=== PATIENT | male | born 1940 | race Caucasian/White ===

== ENCOUNTER → 2016-11-15 10:26 | Outpatient (CLI) | payer MEDICARE, OTHER ==
[2015-11-16 09:18] VITALS: BMI 30.8
[~2016-11-15 10:26] MED LIST: ACETAZOLAMIDE250 MG PO; ADVAIR HFA [SP]12 GM INH; ALBUTEROL INH; APRESOLINE50 MG PO; ARTIFICIAL TEAR15 ML EACH EYE; ASPIRIN325 MG PO; ATROVENT 0.02%2.5 ML UPD; AUGMENTIN 875-11 TAB PO; BETAPACE 120 M120 MG PO; BETAPACE 80 MG80 MG PO; BUMEX2 MG PO; BYSTOLIC10 MG PO; CHERATUSSIN AC473 ML PO; CORDARONE200 MG PO; CYCLOBENZAPRINE10 MG PO; DULCOLAX10 MG/SUPP RC; FISH OIL 1,0001 CA1; FISH OIL 1,0001 CA1 PO; FLEXERIL10 MG; FLORASTOR250 MG PO; HYDRALAZINE HCL25 MG PO; HYDRALAZINE HCL50 MG PO; HYDROCODON-ACE1 EAC7 PO; HYDROCODONE-APA1 TAB PO; IPRAT-ALBUT 0.5-3 ML UPD; LASIX20 MG PO; LASIX40 MG PO; LEVAQUIN500 MG PO; LEVAQUIN750 MG PO; LISINOPRIL10 MG PO; MAGNESIUM OXID500 MG PO; MEDROL DOSE PACK4 MG PO; MIRALAX17 GM PO; MUCINEX DM ER1 EAC1 PO; MULTI-DAY VITAM1 TAB PO; PEPCID20 MG PO; PERSANTINE50 MG PO; PLAVIX75 MG PO; POTASSIUM99 M1 PO; PROTONIX I40 MG/VIAL IV; PROTONIX40 MG PO; PROVENTIL HFA6.7 GM INH; REQUIP XL2 MG PO; RESTASIS EYE DR30 EA EACH EYE; SALINE FLUSH10 ML IV; SENOKOT-S TABLE1 TAB PO; SINGULAIR10 MG PO; SYMBICORT 16010.2 GM INH; TESSALON PERLE100 MG PO; TRILIPIX135 MG PO; UROXATRAL10 MG PO; VITAMIN B-1250 MCG; VITAMIN D2000 UNIT; VITAMIN D31000 UNIT PO; XARELTO15 MG PO
[2016-11-15 11:26] LABS: HEMATOCRIT 43.5 % (42.0-54.0); HEMOGLOBIN 14.3 g/dL (13.5-17.5); LYMPHOCYTES 26.9 % (15-50); MCHC 32.9 g/dL (31.0-37.0); MCV 97.3 fL (80.0-100.0); MEAN PLATELET VOLUME 9.5 fL (7.4-10.4); NEUTROPHILS 65.8 % (40-80); RBC 4.47 10x6/uL (4.20-6.10); RDW 12.6 % (11.5-14.5); WBC 6.6 10x3/uL (4.8-10.8)
[2016-11-15 11:28] LABS: PLATELET COUNT 231 10x3/uL (130-400)
[2016-11-15 11:46] LABS: ALBUMIN 3.2 g/dL (3.4-5.0); ANION GAP 6.1 mmol/L (8-16); BILIRUBIN - TOTAL 0.4 mg/dL (0.2-1.3); CALCIUM 9.4 mg/dL (8.5-10.1); CARBON DIOXIDE 36.5 mmol/L (21.0-32.0); CHOL - HDL RATIO 11.6 ratio (2.3-4.9); CREATININE - SERUM 1.2 mg/dL (0.6-1.3); POTASSIUM - SERUM 4.6 mmol/L (3.5-5.1); PROTEIN - SERUM 7.5 g/dL (6.4-8.2); SCREENING PSA (YEARLY) 1.33 ng/mL (0.00-4.00)
== END | disposition home or self-care (01) ==
LOC: D.LAB 10:15
PROVIDERS: Family Medicine
DX: Z00.00 Encounter for general adult medical examination without abnormal findings (principal); J44.9 Chronic obstructive pulmonary disease, unspecified; I10 Essential (primary) hypertension; E78.5 Hyperlipidemia, unspecified; I25.10 Atherosclerotic heart disease of native coronary artery without angina pectoris; N40.0 Benign prostatic hyperplasia without lower urinary tract symptoms

== ENCOUNTER 2016-11-25 23:53 | Inpatient (IN) | payer MEDICARE, OTHER ==
[~2016-11-25] VITALS: Ht 165.1 cm; Wt 81.6 kg
--- NOTE | ~2016-11-25 | HEMODYNAMI ---
PATIENT:JOSE L DURHAM MEDICAL RECORD: [id number] : 40 [id number] ADMISSION DATE: 11/26/16 Generatedon:11/28/201614:02 Patient name: JOSE L DURHAM Patient #: [id number] SSN: : Date of study: 11/28/2016 Page: Of Hemodynamic Procedure Report Patient Data Patient Demographics Procedure consent was obtained First Name: JOSE L Gender: Male Last Name: MARVA : 1940 Middle Initial: W Age: 76 year(s) Patient #: [id number] Race: Additional ID: [id number] Contact details [address]: [address] [place] [address] State: [place] [facility] [place]: [address] Past Medical History History of disease Date Diagnosis Comments CAD Allergies Allergen Reaction Date Comments Reported Other allergy 11/18/2015 Crestor Other allergy 11/28/2016 Crestor Admission Admission Data Admission Date: 11/26/2016 Admission Time: 3:54 Room #: D.2136 Height (in.): 71 BSA: 0.76 (m2) Height (cm.): 180.34 BMI: 2.51 (kg/m2) Weight (lbs.): 18 Weight (kg.): 8.16 Lab Results Lab Result Date: 11/28/2016 Lab Result Time: 0:00 Biochemistry Name Units Result Min Max BUN mg/dl 22 --(----)-* 7 18 Creatinine mg/dl 1.1 --(--*-)-- 0.6 1.3 CBC Name Units Result Min Max Hemoglobin g/dl 13.3 -*(----)-- 13.5 17.5 Procedure Procedure Types Cath Procedure Diagnostic Procedure [facility] w/Coronaries Miscellaneous Procedures Moderate Sedation up to 15 minutes Procedure Description Procedure Date Procedure Date: 11/28/2016 Procedure Start Time: 13:49 Procedure End Time: 13:59 Procedure Staff Name Function Mauro Hathaway MD Performing Physician Ben Ochoa RN Nurse Gretchen Kiran RT Scrub Kamar Morrison RT Monitor Jose Cruz Nolen RT Monitor Procedure Data Cath Procedure Fluoroscopy Diagnostic fluoroscopy Total fluoroscopy Time: 1.9 time: 1.9 min min Diagnostic fluoroscopy Total fluoroscopy dose: dose: 242.05 mGy 242.05 mGy Contrast Material Contrast Material Type Amount (ml) Isovue 300 76 Entry Location Entry Primary Successful Side Size Upsize Upsize Entry Closure Succes sful Closure Location (Fr) 1 (Fr) 2 (Fr) Remarks Device Remarks Femoral Right 5 Fr Exoseal artery Estimated blood loss: 5 ml Diagnostic catheters Device Type Used For End Catheter Placement Medtronic Dexterity 5Fr Procedure JL 4.0 catheter (NO CHARGE) Medtronic Dexterity 5Fr Procedure 3DRC catheter (NO CHARGE) Medtronic Dexterity 5Fr Procedure Pigtail catheter (NO CHARGE) Procedure Complications No complications Procedure Medications Medication Administration Route Dosage Oxygen NC 2 l/min Heparin Flush Bag added to field 2 bags (1000units/500ml NS) 0.9% NaCl I.V. 100 ml/hr Fentanyl I.V. 50 mcg Versed I.V. 1 mg Fentanyl I.V. 50 mcg Versed I.V. 1 mg Fentanyl I.V. 50 mcg Fentanyl I.V. 50 mcg Hemodynamics Rest BSA: 0.76 (m2) HGB: 13.3 (g/dl) O2 Consumption: Estimated: 91.85 (ml/min) O2 Con sumption indexed: Estimated:120.86 (ml/min/m) Heart Rate: 86 (bpm) Pressure Samples Time Site Value (mmHg) Purpose Heart Use Rate(bpm) 13:56 LV 144/7,16 Snapshot 83 13:57 AO 150/56(91) Pullback 81 13:57 LV 145/8,16 Pullback 81 Gradients Valve Time Site 1 Site 2 Mean SEP/DFP Peak To Heart Use (mmHg) (sec/min) Peak Rate (mmHg) (bpm) Aortic 13:57 LV AO 0 9 0 81 145/8,16 150/56(91) Calculations Valve P-P Mean Valve Index Valve Source Name Gradient Area Flow (cm2) Aortic 0 0 0 0 Snapshots Pre Cath Intra NCS Post Cath Vital Signs Time Heart Resp SPO2 NIBP (mmHg) Rhythm Pain Sedation Rate (ipm) (%) Status Level (bpm) 13:32:19 100 18 96 174/85(136) NSR 0 (11) 10(A) , No pain 13:36:37 81 17 96 148/76(111) NSR 0 (11) 10(A) , No pain 13:40:57 81 18 95 138/68(107) NSR 0 (11) 10(A) , No pain 13:45:20 80 17 95 140/68(100) NSR 0 (11) 10(A) , No pain 13:49:40 78 17 91 136/71(107) NSR 0 (11) 9(A) , No pain 13:53:58 75 17 91 139/72(105) NSR 0 (11) 9(A) , No pain 13:58:18 82 18 92 136/71(106) NSR 0 (11) 9(A) , No pain 14:01:37 83 16 92 134/73(98) NSR 0 (11) 9(A) , No pain Medications Time Medication Route Dose Verified Delivered Reason Notes Effec tiveness by by 13:28:45 Oxygen NC 2 Ben Ben Per l/min Don Ochoa RN physician RN 13:28:56 Heparin Flush added 2 Ben Ben used for Bag to bags Don Ochoa RN procedure (1000units/500ml field RN NS) 13:29:10 0.9% NaCl I.V. 100 Ben Ben Per ml/hr Don Ochoa RN physician RN 13:48:14 Fentanyl I.V. 50 Ben Ben for heber Ochoa RN sedation RN 13:48:21 Versed I.V. 1 mg Ben Ben for Don Ochoa RN sedation RN 13:50:21 Fentanyl I.V. 50 Ben Ben for heber Ochoa RN sedation RN 13:50:27 Versed I.V. 1 mg Ben Ben for Don Ochoa RN sedation RN 13:52:47 Fentanyl I.V. 50 Ben Ben for heber Ochoa RN sedation RN 13:56:38 Fentanyl I.V. 50 Ben Ben for heber Ochoa RN sedation trawl net maker Log Time Note 13:06:20 Ben Ochoa RN sent for patient. Start room use. 13:15:21 Time tracking: Regular hours 13:15:25 Plan of Care:Hemodynamics will remain stable., Cardiac rhythm will remain stable., Comfort level will be maintained., Respiratory function will remain adequate., Patient/ family verbilizes understanding of procedure., Procedure tolerated without complication., Recovers from procedure without complications.. 13:24:06 Patient received from PCU to CCL 3 Alert and oriented. Tansferred to table in Supine position. 13:24:07 Warm blankets applied, and arnaldo hugger turned on for patient comfort. 13:24:07 Correct patient and procedure confirmed by team. 13:24:09 Signed procedure consent form obtained from patient. 13:24:10 ECG and BP/O2 sat monitors applied to patient. 13:24:10 Full Disclosure recording started 13:28:45 Oxygen 2 l/min NC was administered by Ben Ochoa RN; Per physician; 13:28:56 Heparin Flush Bag (1000units/500ml NS) 2 bags added to field was administered by Ben Ochoa RN; used for procedure; 13:29:10 0.9% NaCl 100 ml/hr I.V. was administered by Ben Ochoa RN; Per physician; 13:30:56 Vital chart was started 13:33:26 Baseline sample Acquired. 13:33:31 Rhythm: sinus rhythm 13:34:10 Diagnostic Cath Status : Elective 13:36:02 H&P Date Dictated: 11/26/2016 Within 30 days and on chart.. 13:36:04 Pre-procedure instructions explained to patient. 13:36:05 Pre-op teaching completed and patient verbalized understanding. 13:36:22 Family in waiting room. 13:36:24 Patient NPO since Breakfast. 13:36:46 Patient allergic to Other allergy Crestor 13:36:49 Is the patient allergic to Iodine/contrast media? No. 13:36:55 Is patient on blood thinner?No 13:36:59 Patient diabetic? No. 13:37:01 ----Pre-sedation anethsthesia assessment.---- 13:37:03 Previous problem with sedation/anesthesia? No ? 13:37:05 Snore? Yes 13:37:06 Sleep apnea? Yes 13:37:08 Deviated septum? No 13:37:09 Opens mouth fully? Yes 13:37:10 Sticks out tongue? Yes 13:37:16 Airway obstruction? Yes COPD 13:37:19 Dentures? No ? 13:37:24 Pre procedure: right dorsailis pedis pulse 2+ Normal; easily identifiable; not easily obliterated 13:37:29 Patient pain scale 0/10 ?. 13:37:36 IV patent on arrival in left forearm with 0.9% NaCl at [facility]. 13:38:13 Lab Result : BUN 22 mg/dl 13:38:13 Lab Result : Creatinine 1.1 mg/dl 13:38:13 Lab Result : Hemoglobin 13.3 g/dl 13:38:17 Lab results completed and on chart. 13:38:23 Right groin area was prepped with chlora-prep and draped in sterile fashion 13:38:54 NO PREP OF RADIAL, LAST CASE WAS A 7 JAPANESE SYSTEM 13:38:57 Alarms reviewed by R. N. 13:38:58 Sharps counted by scrub and verified by R.N. 13:39:19 Patient Height : 180.34 cm 13:39:40 Patient Weight : 8.16 kg 13:39:52 Use device set Femoral Dx 13:39:54 Acist Syringe opened to sterile field. 13:39:54 Bag Decanter opened to sterile field. 13:39:55 Medline Cath Pack opened to sterile field. 13:39:56 Terumo 5Fr Madison Sheath opened to sterile field. 13:39:56 St Jorge Alberto 260cm J .035 wire opened to sterile field. 13:39:58 Acist Hand Control opened to sterile field. 13:39:59 Acist Manifold opened to sterile field. 13:40:02 Tegaderm 4 x 4 opened to sterile field. 13:46:31 Zero performed for pressure channel P1 13:46:38 Physician arrived 13:46:38 --------ALL STOP TIME OUT------ 13:46:39 Final Timeout: patient, procedure, and site verified with staff and physician. All members of the team are in agreement. 13:46:41 Right groin site verified by team. 13:46:45 Physical assessment completed. ASA score P 2 - A patient with mild systemic disease as per Mauro Hathaway MD. 13:46:50 Sedation plan: IV Moderate Sedation Versed, Fentanyl 13:47:51 Zero performed for pressure channel P1 13:48:14 Fentanyl 50 mcg I.V. was administered by Ben Ochoa RN; for sedation; 13:48:21 Versed 1 mg I.V. was administered by Ben Ochoa RN; for sedation; 13:49:32 Procedure started. 13:49:35 Local anesthetic to right femoral artery with Lidocaine 2% by Mauro Hathaway MD.INITIAL ACCESS ONLY 13:49:46 A 5 Fr sheath was inserted into the Right Femoral artery 13:50:21 Fentanyl 50 mcg I.V. was administered by Ben Ochoa RN; for sedation; 13:50:27 Versed 1 mg I.V. was administered by Ben Ochoa RN; for sedation; 13:51:22 A Medtronic Dexterity 5Fr JL 4.0 catheter (NO CHARGE) was advanced over the wire and used for Procedure. 13:52:47 Fentanyl 50 mcg I.V. was administered by Ben Ochoa RN; for sedation; 13:53:03 LCA angiography performed. 13:53:06 Catheter exchanged over wire. 13:53:11 A Medtronic Dexterity 5Fr 3DRC catheter (NO CHARGE) was advanced over the wire and used for Procedure. 13:54:38 RCA angiography performed. 13:55:05 Catheter exchanged over wire. 13:55:11 A Medtronic Dexterity 5Fr Pigtail catheter (NO CHARGE) was advanced over the wire and used for Procedure. 13:55:16 Cordis 5Fr Exoseal opened to sterile field. 13:56:26 LV gram done using FRANCO 13:56:31 Injector settings: Ml/sec: 10, Volume: 20, 13:56:38 Fentanyl 50 mcg I.V. was administered by Ben Ochoa RN; for sedation; 13:56:54 EF : 60 % 13:57:16 LV hemodynamics recorded. 13:57:22 Catheter removed. 13:57:36 Sheath removed intact; hemostasis achieved with Exoseal to the Right Femoral artery. 13:57:39 Procedure ended.(Physican Out) 13:57:50 Fluoroscopy time 01.90 minutes. 13:58:00 Fluoroscopy dose: 242.05 mGy 13:58:00 Flurop Dose total: 242.05 13:58:04 Contrast amount:Isovue 300 76ml. 13:58:05 Sharps counted by scrub and verified by R.N. 13:58:07 Insertion/operative site no bleeding no hematoma. 13:58:09 Post-op/insertion site Right Femoral artery dressed using a 4 x 4 and Tegaderm. 13:58:13 Post right femoral artery:stable, soft, clean and dry 13:58:14 Post Procedure Pulses reassessed and unchanged 13:58:16 Post-procedure physical assessment completed. ASA score P 2 - A patient with mild systemic disease as per Mauro Hathaway MD. 13:58:18 Post procedure rhythm: unchanged. 13:58:21 Estimated blood loss: 5 ml 13:58:22 Post procedure instruction explained to patient.Patient verbalizes understanding. 13:58:22 Patient needs reinforcement of post procedure teaching. 13:58:30 Procedure type changed to Cath procedure, Diagnostic procedure, LHC, LHC w/Coronaries, Miscellaneous Procedures, Moderate Sedation up to 15 minutes 13:58:52 Procedure and supply charges have been captured, reviewed, submitted and are correct. 13:58:54 Procedure Complication : No complications 13:59:01 Vital chart was stopped 13:59:01 See physician's report for complete and final results. 13:59:02 Report given to Pre/Post Procedure Room. 13:59:05 Patient transfered to Pre/Post Procedure Room with Stretcher. 13:59:06 Procedure ended. 13:59:06 Full Disclosure recording stopped 13:59:13 End room use (Document Last) Device Usage Item Name Manufacture Quantity Catalog Hospital Part Current Minimal Lo t# / Number Charge Number Stock Stock Serial# Code Acist Acist 1 [id number] 434963 [id number] 20 Syringe Medical Systems Inc Bag Microtek 1 2001S [id number] 48277 683501 5 DecClick4Ride Inc. Medline Cardinal 1 [id number] 588215 38265 889380 5 SNAPin Software TerMapp 1 [id number] 034799 848817 718760 [address] Jorge Alberto 1 [id number] 526485 686344 825521 30 260cm J .035 wire Acist Acist 1 57335 909596 646088 610831 5 Hand Taking Point Control Systems Inc Acist Acist 1 66812 268942 963729 460457 5 Manifold Medical Systems Inc Tegaderm 1 [id number] 828515 493816 310812 5 4 x 4 Medtronic Medtronic 1 [id number] 758559 249224 5 Dexterity 5Fr JL 4.0 catheter (NO CHARGE) Medtronic Medtronic 1 [id number] 888655 622528 5 Dexterity 5Fr 3DRC catheter (NO CHARGE) Medtronic Medtronic 1 [id number] 700140 433933 5 Dexterity 5Fr Pigtail catheter (NO CHARGE) Cordis Cardinal 1 [id number] 208309 538514 070886 10 5Fr Health Exoseal Signature Audit [place] Stage Time Signature Unsigned Intra-Procedure 11/28/2016 Jose Cruz Nolen 2:02:20 PM RT(R) Signatures Monitor : Kamar Morrison RT Signature : Date : Time : Monitor : Jose Cruz Nolen RT Signature : Date : Time : [place] [address] [place] [address]
[~2016-11-25 23:53] MED LIST changes: -PROVENTIL HFA6.7 GM INH
[2016-11-26 01:05] LABS: CKMB 2.2 U/L (0.0-3.6); CREATINE KINASE 75 UL (21-232); PRO BNP 531 pg/mL (0-450); TROPONIN-I 0.039 ng/mL (0.000-0.060)
[2016-11-26 02:01] LABS: BASOPHILS 0.4 % (0-2); EOSINOPHILS 5.2 % (0-7); HEMATOCRIT 54.5 % (42.0-54.0); HEMOGLOBIN 17.9 g/dL (13.5-17.5); IMMATURE GRANULOCYTES 0.2 % (0-5); LYMPHOCYTES 22.6 % (15-50); MCH 32.3 pg (26.0-34.0); MCHC 32.8 g/dL (31.0-37.0); MCV 98.2 fL (80.0-100.0); MEAN PLATELET VOLUME 11.2 fL (7.4-10.4); MONOCYTES 4.9 % (2-11); NEUTROPHILS 66.7 % (40-80); RBC 5.55 10x6/uL (4.20-6.10); RDW 12.7 % (11.5-14.5); WBC 5.4 10x3/uL (4.8-10.8)
[2016-11-26 02:09] LABS: PLATELET COUNT 152 10x3/uL (130-400)
[2016-11-26 02:11] LABS: ALBUMIN 3.4 g/dL (3.4-5.0); ANION GAP 9.5 mmol/L (8-16); BILIRUBIN - TOTAL 0.4 mg/dL (0.2-1.3); CALCIUM 8.7 mg/dL (8.5-10.1); CARBON DIOXIDE 35.3 mmol/L (21.0-32.0); CREATININE - SERUM 1.3 mg/dL (0.6-1.3); POTASSIUM - SERUM 3.8 mmol/L (3.5-5.1); PROTEIN - SERUM 6.9 g/dL (6.4-8.2)
--- NOTE | 2016-11-26 07:10 | NUR ---
REC'D PT FROM ER VIA BED. PT A/O X3. WEARING BI-PAP AT 40%. SPOUSE AT BEDSIDE. 18G IV TO RT AC, IS SL. ABRASION TO LEFT FOREHEAD D/T FALL. PT AND SPOUSE ORIENTED TO ROOM. CALL LIGHT WITH IN REACH. PT ASKING ABOUT FOOD. INFORMED PT AND SPOUSE THAT WE ARE AWAITING ORDERS FROM DR. VAUGHAN. PT APPEARS COMFORTABLE. NO DISTRESS NOTED. WHEN ASKED IF PT WAS FEELING BETTER SHE SHOOK HIS HEAD YES.
[2016-11-26] MEDS ORDERED: FISH OIL 1,0001 CA1 PO (07:22)
[2016-11-26 08:28] LABS: TROPONIN-I 0.14 ng/mL (0.000-0.060)
[2016-11-26 09:44] VITALS: BP 113/56
--- NOTE | 2016-11-26 10:04 | NUR ---
0656- PT TO FLOOR VIA STRETCHER ACCOMPANIED BY ER STAFF. RECEIVED REPORT FROM CARIE (COMMODITY SPECIALIST NURSE). PT IS ALERT AND ORIENTED. ON BI-PAP. IV SEEN TO RIGHT AC THAT IS CURRENTLY SALINE LOCKED. IS AT BEDSIDE. CARIE (COMMODITY SPECIALIST NURSE) IS DOING QUICKSTART AND ADMISSION HISTORY, WILL DO ADMISSION ASSESSMENT AND CONTINUE TO MONITOR.
--- NOTE | 2016-11-26 10:08 | NUR ---
ADMISSION ASSESSMENT DONE. PT IS LAYING IN BED ON BACK WITH EYES CLOSED RESTING. BI-PAP IS ON AND IS AT BEDSIDE. NO NEED AT CURRENT TIME. WILL CONTINUE TO MONITOR.
[2016-11-26 10:48] VITALS: BP 113/56
[2016-11-26 12:03] VITALS: BP 103/84
--- NOTE | 2016-11-26 12:14 | NUR ---
UPON WALKING INTO PTS ROOM, NOTICED PT IS OFF HIS BI-PAP AND HIS NC IS NOT ON. PT IS SITTING UP IN SIDE OF THE BED EATING LUNCH. I CHECKED PTS 02 SAT WHICH WAS 74%. I ASKED PT IF HE FELT OKAY AND HE REPLIED " YES". I TURNED PTS O2 VIA NC UP TO 4L AND RECHECKED PTS O2 SAT WHICH IS 90% NOW. INSTRUCTED PT LEAVE 02 ON. WILL CONTINUE TO MONITOR.
--- NOTE | 2016-11-26 13:04 | NUR ---
INFORMED MERISSA IN TELEMETRY THAT PT HAS ORDERS TO BE PUT ON HEART MONITOR. MERISSA STATED THAT THEY ARE ONLY PUTTING PTS ON THE MONITOR IF THEY HAVE CHEST PAIN, ELEVATED TROPONIN, CHF, AND ANGINA. WILL CONTINUE TO MONITOR.
[2016-11-26 16:51] VITALS: BP 147/75
[2016-11-26 20:00] VITALS: BP 157/98
--- NOTE | 2016-11-26 21:05 | NUR ---
NO HS MEDS TO GIVEN AT THIS TIME, PT DENIES NEEDS. POSTING CLERK AT BED SIDE TO OBTAIN VITALS.
--- NOTE | 2016-11-26 21:50 | NUR ---
NOTIFIED DIE CAST ENGINEER Scot SCHNEIDER OF NEW MEDICATION ORDERS THAT WERE PLACED BY DR CROWELL.
--- NOTE | 2016-11-26 22:03 | NUR ---
PAGE OUT TO DR LANCASTER FOR CONSULT PLACED BY DR CROWELL.
--- NOTE | 2016-11-26 22:09 | NUR ---
PLACED ON TELETMETRY, 78, SR. WILL CONT TO MONITOR.
--- NOTE | 2016-11-26 23:50 | NUR ---
HS MEDS GIVEN WITH FRESH ICE WATER, INFORMED H.S. THAT I HAD SENT OUT A PAGE FOR DR LANCASTER BUT DIDNT RECIEVE A RETURN CALL.
[2016-11-27] VITALS (7 sets, daily range): BP systolic 124–164; BP diastolic 57–78
--- NOTE | 2016-11-27 02:38 | NUR ---
RESTING WITH EYES CLOSED, RESPERATIONS EVEN, NO S/S DISTRESS NOTED.
[2016-11-27 06:05] LABS: BASOPHILS 0 % (0-2); EOSINOPHILS 0 % (0-7); IMMATURE GRANULOCYTES 0.2 % (0-5); LYMPHOCYTES 7.2 % (15-50); MCHC 32.8 g/dL (31.0-37.0); MCV 97.8 fL (80.0-100.0); MEAN PLATELET VOLUME 10.6 fL (7.4-10.4); MONOCYTES 1.6 % (2-11); RDW 12.5 % (11.5-14.5)
[2016-11-27 06:14] LABS: HEMATOCRIT 40.6 % (42.0-54.0); HEMOGLOBIN 13.3 g/dL (13.5-17.5); RBC 4.15 10x6/uL (4.20-6.10); WBC 16.6 10x3/uL (4.8-10.8)
[2016-11-27 06:15] LABS: PLATELET COUNT 205 10x3/uL (130-400)
[2016-11-27 06:41] LABS: ANION GAP 9.3 mmol/L (8-16); CALCIUM 9.1 mg/dL (8.5-10.1); CREATININE - SERUM 1.1 mg/dL (0.6-1.3); MAGNESIUM - SERUM 1.7 mg/dL (1.8-2.4); POTASSIUM - SERUM 4.3 mmol/L (3.5-5.1)
[2016-11-27 06:43] LABS: TROPONIN-I 0.158 ng/mL (0.000-0.060)
--- NOTE | 2016-11-27 06:52 | NUR ---
RECEIVED REPORT FROM OTOLARYNGOLOGY SURGEON NURSE, RUSSELL TAMAYO. PT IN BED USING BIPAP AT THIS TIME. PT DENIE ANY NEEDS AT THIS TIME. CALL LIGHT IN REACH, NAD NOTED, WILL CONTINUE TO MONITOR.
--- NOTE | 2016-11-27 09:28 | NUR ---
ADMINISTERED MORNING MEDICATIONS. PT IN BED, FAMILY AT BEDSIDE. PT DENIES ANY NEEDS AT THIS TIME. CALL LIGHT IN REACH, NAD NOTED, WILL CONTINUE TO MONITOR.
--- NOTE | 2016-11-27 19:00 | NUR ---
INITIAL ROUNDS MADE. PT SITTING UP IN BED WITH FAMILY IN ROOM. PT ON BIPAP AT THIS TIME. NO NEEDS OR C/O VOICED AT THIS TIME. WILL CONT TO MONITOR.
--- NOTE | 2016-11-27 22:55 | NUR ---
RESTING WELL WITH EYES CLOSED, RT IN ROOM. BIPAP ON
[2016-11-28 03:23] VITALS: BP 151/75
--- NOTE | 2016-11-28 07:20 | NUR ---
PT SITTING UP IN BED FAMILY MEMBER AT BEDSIDE DENIES NEEDS WILL CONT TO MONITOR
[2016-11-28 08:33] VITALS: BP 163/73
--- NOTE | 2016-11-28 10:52 | NUR ---
PT SAYING THAT HE IS TO GO FOR HEART CATH TODAY. NO ORDERS. DR HEADLEY'S NOTE FROM YESTERDAY SAYS HE IS TO HAVE HEART CATH TODAY. CALLED CARDIAC TRAINING PERSONNEL SUPERVISOR SPOKE WITH JORGE, HE SAYS PT IS ON SCHEDULE FOR LATER THIS AFTERNOON. OBTAINED CONSENTS FOR CARDIAC CATH AND BLOOD AND PLACED ON PT CHART.
[2016-11-28 12:00] VITALS: BP 164/64
--- NOTE | 2016-11-28 12:09 | NUR ---
Patient Name: JOSE L DURHAM Admission Status: ER Accout number: [id number] Admission Date: 11-26-2016 : 1940 Admission Diagnosis: Attending: NEYDA Current LOS: 2 Anticipated DC Date: 11-29-2016 Planned Disposition: Home Primary Insurance: MEDICARE A & B Discharge Planning Comments: * Is the patient Alert and Oriented? Yes 0 * How many steps to enter\exit or inside your home? NONE 0 * PCP DR. BISWAS 0 * Pharmacy [facility] [employer] [facility] [email or web address] 0 * Preadmission Environment Home with Family 0 * ADLs Independent 0 * Equipment CPAP Nebulizer Oxygen 0 * Other Equipment HOME AND PORTABLE OXYGEN [facility] - MEDICAL EQUIPMENT PROVIDER 0 * List name and contact numbers for known caregivers / representatives who currently or will assist patient after discharge: REYES DURHAM, SPOUSE, 0 * Community resources currently utilized None 0 * Please name any agencies selected above. NONE 0 * Additional services required to return to the preadmission environment? No 0 * Can the patient safely return to the preadmission environment? Yes 0 * Has this patient been hospitalized within the prior 30 days at any hospital? No 0 CM RECEIVED ORDER FOR HOSPITAL BED AND NIPPV ARRANGEMENT. CM MET WITH PT AND SPOUSE IN ROOM TO DISCUSS DISCHARGE PLANNING AND NEEDS. PT REPORTS LIVING AT HOME INDEPENDENTLY WITH SPOUSE. PT HAS CPAP, NEBULILZER, HOME AND PORTABLE OXYGEN FROM [facility]. PT HAS NO OUTSIDE SERVICES ASSISTING IN THE HOME. CM DISCUSSED AVAILABILITY OF HOME HEALTH, REHAB SERVICES AND MEDICAL EQUIPMENT. PT DENIES DISCHARGE NEEDS OTHER THAN THE ORDERS THE DOCTORS HAVE PUT IN, PT THINKS HE MAY GO HOME TOMORROW IF ARRANGEMENTS ARE COMPLETED. PT WOULD LIKE TO USE [facility] FOR MEDICAL EQUIPMENT. PT REPORTS HIS SPOUSE WILL PICK HIM UP FOR DISCHARGE HOME. IMPORTANT MESSAGE FROM MEDICARE PROVIDED AND EXPLAINED. CM CALLED [facility], , SPOKE TO KIN, NOTIFIED OF ORDER, FAXED ORDER TO [facility] AT [phone]. CM WAITING ARRANGEMENT OF HOSPITAL BED FOR HOME USE WELL NIPPV BY [facility]. CM TO CONTINUE TO FOLLOW AND ASSIST NEEDED. Proof Inspector: Daryl Reese
--- NOTE | 2016-11-28 13:00 | NUR ---
PT PREOPED FOR HEART CATH
--- NOTE | 2016-11-28 14:15 | NUR ---
PT BACK FROM EDUCATIONAL PSYCHOLOGY PROFESSOR AWAKE ALERT AND ORIENTED. VS ARE WNL. R GROIN INCISION SITE IS WNL. FAMILY AT BEDSIDE. FLAT FOR 2 HOURS
[2016-11-28 14:50] LABS: BASOPHILS 0 % (0-2); EOSINOPHILS 0 % (0-7); HEMOGLOBIN 13.4 g/dL (13.5-17.5); IMMATURE GRANULOCYTES 0.3 % (0-5); LYMPHOCYTES 5.7 % (15-50); MCH 32.1 pg (26.0-34.0); MCHC 32.7 g/dL (31.0-37.0); MCV 98.1 fL (80.0-100.0); MEAN PLATELET VOLUME 10.7 fL (7.4-10.4); MONOCYTES 3.8 % (2-11); NEUTROPHILS 90.2 % (40-80); PLATELET COUNT 200 10x3/uL (130-400); RBC 4.18 10x6/uL (4.20-6.10); RDW 12.8 % (11.5-14.5); WBC 14.6 10x3/uL (4.8-10.8)
--- NOTE | 2016-11-28 14:52 | NUR ---
PT R GROIN SITE STILL WNL, PT VS ARE STILL WNL FAMILY AT BEDSIDE. PT STILL LAYING FLAT AND IS EATING A SANDWICH.
--- NOTE | 2016-11-28 15:14 | NUR ---
PT STILL LAYING FLAT R GROIN SITE STILL WNL, VS ARE WNL
[2016-11-28 15:15] LABS: ANION GAP 6.5 mmol/L (8-16); CALCIUM 8.7 mg/dL (8.5-10.1); CARBON DIOXIDE 37.5 mmol/L (21.0-32.0); CREATININE - SERUM 1.2 mg/dL (0.6-1.3)
[2016-11-28 15:23] VITALS: Ht 165.1 cm; Wt 81.6 kg
[2016-11-28 16:00] VITALS: BP 140/64
[2016-11-28] MEDS ORDERED: PROVENTIL HFA6.7 GM INH (16:02)
--- NOTE | 2016-11-28 17:13 | NUR ---
PT BIPAP CAN NOT BE DELIVERED FROM [facility] UNTIL TOMORROW. PT SAYS OK WITH HIM TO JUST USE HOME CPAP MACHINE. PAGED DR CONTEH TO MAKE SURE
[2016-11-28] MEDS ORDERED: LEVAQUIN750 MG PO (17:28)
--- NOTE | 2016-11-28 17:44 | NUR ---
DR CONTEH IS OK WITH PT USING CPAP TOMORROW AND USING BIPAP AFTER DELIVERED. PT WANTS TO GO HOME, DR CONTEH SAID "WHATEVER HE WANTS". WORKING ON DC PAPERWORK NOW. DR CONTEH WANTS PT TO GO HOME ON LEVAQUIN 750 MG DAILY FOR 10 DAYS. CALLED INTO [facility] SPOKE WITH SWAPNA
--- NOTE | 2016-11-28 18:12 | NUR ---
PT WAS WHEELED DOWNSTAIRS BY ME PERSONALLY, DROVE HIM HOME
--- NOTE | 2016-11-29 08:51 | NUR ---
Patient Name: JOSE L DURHAM Encounter No: [id number] : 1940 Primary Insurance: MEDICARE A & B Anticipated DC Date: 11-28-2016 Planned Disposition: Home DCP follow-up note: MICAELA CALLED [facility], , NOTIFIED LUIS OF PT'S DISCHARGE AND REQUESTED THAT ALL MEDICAL EQUIPMENT DELIVERY (NIPPV AND HOSPITAL BED) BE ARRANGED WITH PT AT HOME. LUIS REPORTS ORDERS ARE BEING PROCESSED AND [facility] WILL FOLLOW UP WITH PT AT HOME. Daryl Reese, CASE MANAGEMENT
--- NOTE | 2016-12-01 10:59 | EC ---
PATIENT:JOSE L DURHAM DATE OF SERVICE: 11/26/16 SEX: M MEDICAL RECORD: [id number] DATE OF : [birth year] LOCATION:D.M2 D.213 AGE OF PATIENT: 76 ADMISSION DATE: 11/26/16 REFERRING PHYSICIAN: INTERPRETING PHYSICIAN: JOSE HATHAWAY M.D. ECHOCARDIOGRAM REPORT ECHO CHARGES 4 ECHO COMPLETE CLINICAL DIAGNOSIS: SOB HX CAD/MULTIPLE STENTS ECHOCARDIOGRAPHIC MEASUREMENTS (adult normal given) AC root (d.<3.7cm) 3.3 LV Septum d (<1.2 cm> 1.7 Valve Excursion 1.8 LV Septum (systole) 1.8 Left Atria (s.<4.0cm> 4.7 LVPW d(<1.2cm) 1.8 RV (d.<2.3cm) 4.9 LVPW (sytole) 2.0 LV diastole(<5.6CM) 5.6 MV E-F(>70mm/sec) LV systole 3.6 LVOT Diameter 1.9 MV exc.(>10mm) 1.3 Est.ejection fraction (50-75%) Pericardial Effusion N DOPPLER: LVIT A 117 E 121 LA RVSP 41 LVOT 104 AOP1/2T Asc. Ao 158 RVOT RA PA AV Gradient Peak 9.95 AV Mean 4.6 AV Area 2.1 MV Gradient Peak 9.77 MV Mean 4.09 MV Area COMMENTS: Tube Draw Helper: Asia FORREST Field Appraiser:Asia Hathaway TAPE# PACS DATE OF SERVICE: 11/27/2016 REFERRING PHYSICIAN: Norris Monreal MD. INDICATION: Dyspnea. DESCRIPTION: Left ventricle demonstrates left ventricular hypertrophy. No wall motion abnormalities are noted. Estimation ejection fraction is 60%. Mitral valve is structurally normal. There is mild regurgitation seen. Left atrium is moderately dilated. The aortic valve is trileaflet. There is no stenosis or ECHOCARDIOGRAM REPORT [id number] JOSE L DURHAM regurgitation seen. Right ventricle is mildly dilated. Tricuspid valve is normal. There is mild regurgitation noted. Right ventricular systolic pressure is elevated at 41 mmHg. There is no pericardial effusion seen. IMPRESSION: 1. Left ventricular hypertrophy with preserved ejection fraction of 60%. 2. Mild mitral regurgitation. 3. Mild tricuspid regurgitation with elevated pulmonary pressures. TRANSINT:[id number] Voice Confirmation ID: [id number] DOCUMENT ID: [id number] JOSE HATHAWAY M.D. at 1059 CC: [id number] DICTATION DATE: 11/28/16645 COIN MACHINE SUPERVISOR: 11/28/1640 DIS IN 11/28/16 [place] [id number] [place] [id number]
--- NOTE | 2016-12-01 10:59 | OP ---
PATIENT NAME: JOSE L DURHAM MEDICAL RECORD: [id number] :40 LOCATION:D.M2 D.2136 ADMISSION DATE:11/26/16 SURGEON: JOSE HEADLEY M.D. DATE OF OPERATION: 11/28/2016 REFERRING PHYSICIAN: Norris Monreal MD. PROCEDURES PERFORMED: 1. Selective coronary angiography. 2. Left heart catheterization with ventriculogram. INDICATION: A 76-year-old gentleman presents with symptoms of dyspnea worsened for angina. Cardiac catheterization was performed to rule out restenosis. EQUIPMENT USED: A 5-Emirati JL4, Adolph right, pigtail catheter. TECHNIQUE: A 5-Emirati sheath was inserted in retrograde fashion in the right common femoral artery. Next, selective coronary angiography was performed in standard views using 5-Emirati JL4 and Adolph right. Left heart catheterization was performed using pigtail catheter. CORONARY ANATOMY: 1. Left main: Left main trunk is moderate in caliber. It gives rise to the LAD and circumflex. There is no obstruction. 2. LAD: This is a moderate-caliber vessel extending to the apex. The proximal mid vessel has been stented. The stents are widely patent. There is no evidence of restenosis. 3. Circumflex: This vessel is small in caliber. It has mild irregularities throughout its course, but nothing worse than 20%. 4. Right coronary: This vessel is large in caliber and dominant. The proximal and distal vessels have been stented. The stent is widely patent. In the distal vessel, proximal to the stent, there appears to be at 30%-40% stenosis. 5. Left ventricle: Left ventricle is normal in size. No wall motion abnormalities are noted. Estimated ejection fraction is 60%. There does appear to be moderate mitral regurgitation noted. IMPRESSION: 1. Widely patent stents in the right coronary artery and left anterior descending without evidence of restenosis. 2. Normal left ventricular function with moderate mitral regurgitation. RECOMMENDATIONS: I will check an echocardiogram to assess the mitral regurgitation to see if this accounts for his dyspnea. TRANSINT:[id number] Voice Confirmation ID: [id number] DOCUMENT ID: [id number] JOSE HEADLEY M.D. at 1059 CC: [id number] DICTATION DATE: 11/28/16 1406 TRANSVERSE ABDOMINAL MUSCLE NURSE: 11/28/16 1434 DIS IN 11/28/16 [facility] [address] [place] [address]
== END 2016-11-28 18:12 | disposition home or self-care (01) | DRG 286 ==
LOC: D.ER 23:53 → D.M2 11-26 03:54
PROVIDERS: Emergency Medicine; Internal Medicine Cardiovascular Disease; ADMIT Family Medicine
PROC: 5A09457 Assistance with Respiratory Ventilation, 24-96 Consecutive Hours, Continuous Positive Airway Pressure (ICD-10-PCS; 2016-11-27)
PROC: B2151ZZ Fluoroscopy of Left Heart using Low Osmolar Contrast (ICD-10-PCS; 2016-11-28)
PROC: 4A023N7 Measurement of Cardiac Sampling and Pressure, Left Heart, Percutaneous Approach (ICD-10-PCS; 2016-11-28)
PROC: B2111ZZ Fluoroscopy of Multiple Coronary Arteries using Low Osmolar Contrast (ICD-10-PCS; principal; 2016-11-28 14:00)
DX: I25.10 Atherosclerotic heart disease of native coronary artery without angina pectoris (principal); J96.22 Acute and chronic respiratory failure with hypercapnia; J96.21 Acute and chronic respiratory failure with hypoxia; J44.0 Chronic obstructive pulmonary disease with (acute) lower respiratory infection; J44.1 Chronic obstructive pulmonary disease with (acute) exacerbation; J98.11 Atelectasis; I50.20 Unspecified systolic (congestive) heart failure; N28.1 Cyst of kidney, acquired; I08.1 Rheumatic disorders of both mitral and tricuspid valves; E78.5 Hyperlipidemia, unspecified; J20.9 Acute bronchitis, unspecified; I11.0 Hypertensive heart disease with heart failure; G47.33 Obstructive sleep apnea (adult) (pediatric); K21.9 Gastro-esophageal reflux disease without esophagitis; N40.0 Benign prostatic hyperplasia without lower urinary tract symptoms; Z95.5 Presence of coronary angioplasty implant and graft; Z86.73 Personal history of transient ischemic attack (TIA), and cerebral infarction without residual deficits

== ENCOUNTER → 2017-10-09 15:26 | Outpatient (CLI) | payer MEDICARE, OTHER ==
[2016-11-28 15:23] VITALS: BMI 29.9
[~2017-10-09 15:26] MED LIST changes: +ASCORBIC ACID500 MG PO; +BROVANA15 MCG/2 M INH; +CENTRUM SILVER1 TA1 PO; +COZAAR25 MG PO; +FLORAJEN3 CAPS460 MG PO; +FLUTICASONE PRO16 GM NASAL; +GLIMEPIRIDE1 MG PO; +PROVENTIL HFA6.7 GM INH; +PULMICORT0.5 MG/21 UPD; +XOPENEX 0.0.63 MG/3 UPD
[2017-10-09 19:09] LABS: BASOPHILS 0.2 % (0-2); EOSINOPHILS 3.6 % (0-7); HEMATOCRIT 44.5 % (42.0-54.0); IMMATURE GRANULOCYTES 0.3 % (0-5); LYMPHOCYTES 21.9 % (15-50); MCH 32.1 pg (26.0-34.0); MCHC 31.5 g/dL (31.0-37.0); MCV 102.1 fL (80.0-100.0); MEAN PLATELET VOLUME 10.9 fL (7.4-10.4); MONOCYTES 3.9 % (2-11); NEUTROPHILS 70.1 % (40-80); PLATELET COUNT 193 10x3/uL (130-400); RBC 4.36 10x6/uL (4.20-6.10); RDW 13.9 % (11.5-14.5); WBC 6.5 10x3/uL (4.8-10.8)
== END | disposition home or self-care (01) ==
LOC: D.LABREF 15:26
PROVIDERS: Internal Medicine Pulmonary Disease
DX: R06.00 Dyspnea, unspecified (principal)

== ENCOUNTER → 2017-10-09 19:12 | Outpatient (CLI) | payer MEDICARE, OTHER ==
[2016-11-28 15:23] VITALS: BMI 29.9
== END | disposition home or self-care (01) ==
LOC: D.LABREF 19:12
DX: R06.00 Dyspnea, unspecified (principal)

== ENCOUNTER 2017-10-21 17:24 | Emergency (ER) | payer MEDICARE, OTHER ==
[2016-11-28 15:23] VITALS: BMI 29.9
[~2017-10-21 17:24] MED LIST changes: -ASCORBIC ACID500 MG PO; -BROVANA15 MCG/2 M INH; -CENTRUM SILVER1 TA1 PO; -COZAAR25 MG PO; -FLORAJEN3 CAPS460 MG PO; -FLUTICASONE PRO16 GM NASAL; -GLIMEPIRIDE1 MG PO; -PULMICORT0.5 MG/21 UPD; -XOPENEX 0.0.63 MG/3 UPD
[2017-10-21 18:21] LABS: BASOPHILS 0.3 % (0-2); EOSINOPHILS 0.6 % (0-7); HEMATOCRIT 46.7 % (42.0-54.0); HEMOGLOBIN 14.7 g/dL (13.5-17.5); IMMATURE GRANULOCYTES 0.4 % (0-5); LYMPHOCYTES 21.7 % (15-50); MCH 32.2 pg (26.0-34.0); MCHC 31.5 g/dL (31.0-37.0); MCV 102.4 fL (80.0-100.0); MEAN PLATELET VOLUME 10.9 fL (7.4-10.4); MONOCYTES 8.6 % (2-11); NEUTROPHILS 68.4 % (40-80); PLATELET COUNT 173 10x3/uL (130-400); RBC 4.56 10x6/uL (4.20-6.10); RDW 14.9 % (11.5-14.5); WBC 6.8 10x3/uL (4.8-10.8)
[2017-10-21 18:34] LABS: ALBUMIN 3.1 g/dL (3.4-5.0); ANION GAP 9.8 mmol/L (8-16); BILIRUBIN - TOTAL 0.6 mg/dL (0.2-1.3); CALCIUM 9.1 mg/dL (8.5-10.1); CARBON DIOXIDE 35.3 mmol/L (21.0-32.0); CREATININE - SERUM 1.8 mg/dL (0.6-1.3); POTASSIUM - SERUM 4.1 mmol/L (3.5-5.1); PROTEIN - SERUM 6.7 g/dL (6.4-8.2)
[2017-10-21 19:38] LABS: APPEARANCE CLEAR (CLEAR); COLOR YELLOW (YELLOW)
[2017-10-21 19:39] LABS: BILIRUBIN NEGATIVE (NEGATIVE); GLUCOSE NEGATIVE (NEGATIVE); KETONE NEGATIVE (NEGATIVE); NITRITE NEGATIVE (NEGATIVE); PROTEIN TRACE mg/dL (NEGATIVE); UROBILINOGEN NORMAL (NORMAL)
[2017-10-21 20:24] LABS: TROPONIN-I 0.019 ng/mL (0.000-0.060)
== END 2017-10-21 22:35 | disposition home or self-care (01) ==
LOC: D.ER 17:24
PROVIDERS: Family Medicine; Physician Assistant
DX: I48.91 Unspecified atrial fibrillation (principal); R06.02 Shortness of breath; R60.0 Localized edema; Z86.79 Personal history of other diseases of the circulatory system; Z87.09 Personal history of other diseases of the respiratory system; I10 Essential (primary) hypertension; F17.200 Nicotine dependence, unspecified, uncomplicated

== ENCOUNTER 2017-11-06 00:30 | Inpatient (IN) | payer MEDICARE, OTHER ==
[2017-11-06] VITALS (24 sets, daily range): BP systolic 90–138; BP diastolic 57–99; BMI 31.6
[~2017-11-06] VITALS: Ht 162.6 cm; Wt 83.6 kg
--- NOTE | ~2017-11-06 | EC ---
PATIENT:JOSE L DURHAM DATE OF SERVICE: 11/06/17 SEX: M MEDICAL RECORD: [id number] DATE OF : 40 LOCATION:[facility] D230 AGE OF PATIENT: 77 ADMISSION DATE: 11/06/17 REFERRING PHYSICIAN: INTERPRETING PHYSICIAN: FRANK MARTNÍEZ MD ECHOCARDIOGRAM REPORT ECHO CHARGES 4 ECHO COMPLETE Date: 11/06 CLINICAL DIAGNOSIS: A-FIB ECHOCARDIOGRAPHIC MEASUREMENTS (adult normal given) AC root (d.<3.7cm) 3.0 cm LV Septum d (<1.2 cm> 1.7 cm Valve Excursion 1.9 cm LV Septum (systole) 2.3 cm Left Atria (s.<4.0cm> 5.1 cm LVPW d(<1.2cm) 1.7 cm RV (d.<2.3cm) 3.0 cm LVPW (sytole) 2.3 cm LV diastole(<5.6CM) 4.5 cm MV E-F(>70mm/sec) cm LV systole 2.2 cm LVOT Diameter 2.1 cm MV exc.(>10mm) cm Est.ejection fraction (50-75%) % DOPPLER: LVIT cm/sec A cm/sec E 196 cm/sec LA cm/sec RVSP 73.0 mmHg LVOT 73.0 cm/sec AOP1/2T m/s Asc. Ao 137 cm/sec RVOT 59.0 cm/sec RA cm/sec PA 74.0 cm/sec AV Gradient Peak 7.5 mmHg AV Mean 3.5 mmHg AV Area 2.3 cm MV Gradient Peak 16.1 mmHg MV Mean 4.8 mmHg MV Area cm COMMENTS: Gas Technician: 1 ODETTE CARLTONOE Core Finisher: 1 Dr. Martínez TAPE# PACS Pericardial Effusion N DATE OF SERVICE: FINDINGS: 1. Left ventricular chamber size is within normal limits. Left ventricular systolic function is normal. Overall ejection fraction estimated at 55%. 2. Left atrium is enlarged at 5.1 cm. Right atrium and right ventricular chamber sizes are as well moderately dilated. 3. Valvular structures have normal structure and motion. 4. Doppler interrogation reveals severe mitral regurgitation, moderate tricuspid regurgitation, no other valvular insufficiency or stenosis. Pulmonary ECHOCARDIOGRAM REPORT [id number] JOSE L DURHAM systolic pressure is significantly elevated, estimated 73 mmHg. 5. No evidence of pericardial effusion or left ventricular thrombus. TRANSINT:[id number] Voice Confirmation ID: [id number] DOCUMENT ID: [id number] FRANK MARTÍNEZ MD at 1056 CC: [id number] DICTATION DATE: 11/06/17 1618 SOLVENT MIXER: 11/06/17 2340 ADM IN [facility] [address] [place] [address]
--- NOTE | ~2017-11-06 | EC ---
PATIENT:JOSE L DURHAM DATE OF SERVICE: 11/06/17 SEX: M MEDICAL RECORD: [id number] DATE OF : 40 LOCATION:D.M2 D.212 AGE OF PATIENT: 77 ADMISSION DATE: 11/06/17 REFERRING PHYSICIAN: INTERPRETING PHYSICIAN: ANDREY JACQUES MD ECHOCARDIOGRAM REPORT ECHO CHARGES 4 ECHO COMPLETE Date: 11/08 CLINICAL DIAGNOSIS: A-FIB ECHOCARDIOGRAPHIC MEASUREMENTS (adult normal given) AC root (d.<3.7cm) 3.0 cm LV Septum d (<1.2 cm> 1.7 cm Valve Excursion 1.9 cm LV Septum (systole) 2.3 cm Left Atria (s.<4.0cm> 5.1 cm LVPW d(<1.2cm) 1.7 cm RV (d.<2.3cm) 3.0 cm LVPW (sytole) 2.3 cm LV diastole(<5.6CM) 4.5 cm MV E-F(>70mm/sec) cm LV systole 2.2 cm LVOT Diameter 2.1 cm MV exc.(>10mm) cm Est.ejection fraction (50-75%) % DOPPLER: LVIT cm/sec A cm/sec E 196 cm/sec LA cm/sec RVSP 73.0 mmHg LVOT 73.0 cm/sec AOP1/2T m/s Asc. Ao 137 cm/sec RVOT 59.0 cm/sec RA cm/sec PA 74.0 cm/sec AV Gradient Peak 7.5 mmHg AV Mean 3.5 mmHg AV Area 2.3 cm MV Gradient Peak 16.1 mmHg MV Mean 4.8 mmHg MV Area cm COMMENTS: Seed Cone Picker: Christopher CARLTONOE Instructional Support Services Director: 4 Dr. Jacques TAPE# PACS Pericardial Effusion N DATE OF SERVICE: PROCEDURE: Transesophageal echocardiogram. The patient was in the ICU, where we were able to intubate the esophagus with the transesophageal echo probe and look at the aorta as well as cardiac structures. FINDINGS: 1. The mitral valve is thickened. There is eccentrically posteriorly directed ECHOCARDIOGRAM REPORT [id number] JOSE L DURHAM mitral regurgitation. There does not appear to be any chordal structure disruption. The papillary muscle appears to be intact. There is a slight prolapse in the anterior mitral valve. There is also what appears to be a coaptation issue. 2. The left atrial appendage itself showed spontaneous echo contrast or rouleaux formation. The pulsed wave velocities were less than 0.5. There appeared to be layered thrombus in the left atrial appendage. This may be sessile, however, it is uncertain based upon current study. 3. There is pulmonary vein reversal. 4. Tricuspid valve shows severe tricuspid regurgitation. Estimated RVSP of 50-60 mmHg. CONCLUSION: In conclusion, the patient has severe eccentric posteriorly directed mitral regurgitation with proximal flow convergence. Subchordal structures appear to be intact with mild anterior valve prolapse and difficulty with what appears to be at the coaptation site with closure. TRANSINT:[id number] Voice Confirmation ID: [id number] DOCUMENT ID: [id number] ANDREY JACQUES MD at 0741 CC: [id number] DICTATION DATE: 11/09/17 0856 HIDE SPLITTER: 11/09/17 1056 DIS IN 11/17/17 [facility] [address] [place] [address]
[2017-11-06 00:53] LABS: BASOPHILS 0.1 % (0-2); EOSINOPHILS 0.2 % (0-7); HEMATOCRIT 49.1 % (42.0-54.0); HEMOGLOBIN 15.8 g/dL (13.5-17.5); IMMATURE GRANULOCYTES 0.2 % (0-5); LYMPHOCYTES 9.4 % (15-50); MCH 33.2 pg (26.0-34.0); MCHC 32.2 g/dL (31.0-37.0); MCV 103.2 fL (80.0-100.0); MEAN PLATELET VOLUME 11.3 fL (7.4-10.4); NEUTROPHILS 84.1 % (40-80); PLATELET COUNT 202 10x3/uL (130-400); RBC 4.76 10x6/uL (4.20-6.10); RDW 14.8 % (11.5-14.5); WBC 16.3 10x3/uL (4.8-10.8)
[2017-11-06 01:16] LABS: ALBUMIN 3.3 g/dL (3.4-5.0); ALKALINE PHOSPHATASE 28 U/L (46-116); ALT (SGPT) 19 U/L (10-68); CALC OSMOLALITY 301 mosm/kg (275-300); CALCIUM 9.5 mg/dL (8.5-10.1); CARBON DIOXIDE 32.7 mmol/L (21.0-32.0); CHLORIDE - SERUM 100 mmol/L (98-107); CREATININE - SERUM 2.1 mg/dL (0.6-1.3); GLUCOSE 215 mg/dL (74-106); POTASSIUM - SERUM 4.8 mmol/L (3.5-5.1); PROTEIN - SERUM 7.1 g/dL (6.4-8.2); SODIUM 143 mmol/L (136-145); UREA NITROGEN 42 mg/dL (7-18); eGFR NON AFRICAN AMERICAN 33 mL/min (90-120)
[2017-11-06 01:19] LABS: CKMB 1.6 U/L (0.0-3.6); CREATINE KINASE 56 UL (21-232); PRO BNP 3993 pg/mL (0-450)
[2017-11-06] MEDS ORDERED: CENTRUM SILVER1 TA1 PO (02:33)
[2017-11-06] MEDS ORDERED: ASCORBIC ACID500 MG PO (02:33)
[2017-11-06 14:16] LABS: APPEARANCE CLEAR (CLEAR); BILIRUBIN NEGATIVE (NEGATIVE); COLOR DK YELLOW (YELLOW); GLUCOSE NEGATIVE (NEGATIVE); KETONE NEGATIVE (NEGATIVE); NITRITE NEGATIVE (NEGATIVE); PROTEIN NEGATIVE (NEGATIVE); UROBILINOGEN NORMAL (NORMAL)
[2017-11-07] VITALS (24 sets, daily range): BP systolic 101–160; BP diastolic 66–99; Ht 162.6 cm; Wt 83.6 kg
[2017-11-07 10:38] LABS: BASOPHILS 0 % (0-2); EOSINOPHILS 0 % (0-7); HEMATOCRIT 43.2 % (42.0-54.0); HEMOGLOBIN 13.6 g/dL (13.5-17.5); IMMATURE GRANULOCYTES 0.3 % (0-5); LYMPHOCYTES 5.7 % (15-50); MCH 31.9 pg (26.0-34.0); MCHC 31.5 g/dL (31.0-37.0); MCV 101.4 fL (80.0-100.0); MEAN PLATELET VOLUME 11.3 fL (7.4-10.4); MONOCYTES 2.5 % (2-11); NEUTROPHILS 91.5 % (40-80); RBC 4.26 10x6/uL (4.20-6.10); RDW 14.4 % (11.5-14.5)
[2017-11-07 10:41] LABS: PLATELET COUNT 149 10x3/uL (130-400); WBC 8.6 10x3/uL (4.8-10.8)
[2017-11-07 10:44] LABS: ANION GAP 11.7 mmol/L (8-16); CALCIUM 8.9 mg/dL (8.5-10.1); CARBON DIOXIDE 35.8 mmol/L (21.0-32.0); CREATININE - SERUM 1.9 mg/dL (0.6-1.3); POTASSIUM - SERUM 4.5 mmol/L (3.5-5.1)
[2017-11-07 13:51] LABS: CKMB 1.6 U/L (0.0-3.6); CREATINE KINASE 35 UL (21-232)
[2017-11-07 14:04] LABS: TROPONIN-I 0.062 ng/mL (0.000-0.060)
[2017-11-07 20:03] LABS: CKMB 1.6 U/L (0.0-3.6); CREATINE KINASE 33 UL (21-232)
[2017-11-07 20:09] LABS: TROPONIN-I 0.066 ng/mL (0.000-0.060)
[2017-11-08] VITALS (24 sets, daily range): BP systolic 99–164; BP diastolic 55–110
[2017-11-08 04:56] LABS: BASOPHILS 0.1 % (0-2); EOSINOPHILS 0 % (0-7); HEMATOCRIT 41.4 % (42.0-54.0); HEMOGLOBIN 14.2 g/dL (13.5-17.5); IMMATURE GRANULOCYTES 0.2 % (0-5); LYMPHOCYTES 5.7 % (15-50); MCH 34.4 pg (26.0-34.0); MCHC 34.3 g/dL (31.0-37.0); MCV 100.2 fL (80.0-100.0); MEAN PLATELET VOLUME 12.5 fL (7.4-10.4); MONOCYTES 4.2 % (2-11); NEUTROPHILS 89.8 % (40-80); RBC 4.13 10x6/uL (4.20-6.10)
[2017-11-08 04:58] LABS: PLATELET COUNT 193 10x3/uL (130-400)
[2017-11-08 05:18] LABS: CALC OSMOLALITY 290 mosm/kg (275-300); CALCIUM 9.2 mg/dL (8.5-10.1); CARBON DIOXIDE 36.5 mmol/L (21.0-32.0); CHLORIDE - SERUM 96 mmol/L (98-107); CKMB 1.3 U/L (0.0-3.6); CREATINE KINASE 80 UL (21-232); CREATININE - SERUM 1.6 mg/dL (0.6-1.3); GLUCOSE 215 mg/dL (74-106); SODIUM 137 mmol/L (136-145); UREA NITROGEN 43 mg/dL (7-18); eGFR NON AFRICAN AMERICAN 45 mL/min (90-120)
[2017-11-08 05:21] LABS: POTASSIUM - SERUM 5.4 mmol/L (3.5-5.1); TROPONIN-I 0.064 ng/mL (0.000-0.060)
[2017-11-08 14:31] LABS: BASOPHILS 0 % (0-2); EOSINOPHILS 0 % (0-7); HEMATOCRIT 46.6 % (42.0-54.0); HEMOGLOBIN 14.8 g/dL (13.5-17.5); IMMATURE GRANULOCYTES 0.3 % (0-5); LYMPHOCYTES 5.8 % (15-50); MCH 32.8 pg (26.0-34.0); MCHC 31.8 g/dL (31.0-37.0); MEAN PLATELET VOLUME 11.4 fL (7.4-10.4); MONOCYTES 3.2 % (2-11); NEUTROPHILS 90.7 % (40-80); PLATELET COUNT 171 10x3/uL (130-400); RBC 4.51 10x6/uL (4.20-6.10); RDW 14.4 % (11.5-14.5)
[2017-11-08 15:07] LABS: MCV 103.3 fL (80.0-100.0); WBC 12.9 10x3/uL (4.8-10.8)
[2017-11-09] VITALS (24 sets, daily range): BP systolic 108–159; BP diastolic 59–119
[2017-11-09 04:32] LABS: BASOPHILS 0 % (0-2); EOSINOPHILS 0 % (0-7); HEMATOCRIT 45.5 % (42.0-54.0); HEMOGLOBIN 14.4 g/dL (13.5-17.5); IMMATURE GRANULOCYTES 0.1 % (0-5); LYMPHOCYTES 6.6 % (15-50); MCH 32.6 pg (26.0-34.0); MCHC 31.6 g/dL (31.0-37.0); MCV 102.9 fL (80.0-100.0); MEAN PLATELET VOLUME 11.5 fL (7.4-10.4); MONOCYTES 5.1 % (2-11); NEUTROPHILS 88.2 % (40-80); PLATELET COUNT 164 10x3/uL (130-400); RBC 4.42 10x6/uL (4.20-6.10); RDW 14.8 % (11.5-14.5)
[2017-11-09 04:54] LABS: ALBUMIN 2.9 g/dL (3.4-5.0); ANION GAP 12.2 mmol/L (8-16); BILIRUBIN - TOTAL 1.18 mg/dL (0.2-1.3); CARBON DIOXIDE 34.6 mmol/L (21.0-32.0); CREATININE - SERUM 1.7 mg/dL (0.6-1.3); MAGNESIUM - SERUM 1.7 mg/dL (1.8-2.4); PHOSPHOROUS 3.3 mg/dL (2.5-4.9); POTASSIUM - SERUM 4.8 mmol/L (3.5-5.1); PROTEIN - SERUM 6.5 g/dL (6.4-8.2)
[2017-11-10] VITALS (22 sets, daily range): BP systolic 113–166; BP diastolic 77–110
[2017-11-10 03:43] LABS: BASOPHILS 0 % (0-2); EOSINOPHILS 0 % (0-7); HEMATOCRIT 45.4 % (42.0-54.0); HEMOGLOBIN 14.1 g/dL (13.5-17.5); IMMATURE GRANULOCYTES 0.3 % (0-5); LYMPHOCYTES 5.8 % (15-50); MCH 31.8 pg (26.0-34.0); MCHC 31.1 g/dL (31.0-37.0); MCV 102.3 fL (80.0-100.0); MEAN PLATELET VOLUME 11.1 fL (7.4-10.4); MONOCYTES 4.6 % (2-11); NEUTROPHILS 89.3 % (40-80); PLATELET COUNT 158 10x3/uL (130-400); RBC 4.44 10x6/uL (4.20-6.10); RDW 14.5 % (11.5-14.5); WBC 7.8 10x3/uL (4.8-10.8)
[2017-11-10 04:30] LABS: ALBUMIN 2.9 g/dL (3.4-5.0); ANION GAP 5.9 mmol/L (8-16); BILIRUBIN - TOTAL 0.7 mg/dL (0.2-1.3); CALCIUM 8.9 mg/dL (8.5-10.1); CARBON DIOXIDE 39.3 mmol/L (21.0-32.0); CREATININE - SERUM 1.7 mg/dL (0.6-1.3); MAGNESIUM - SERUM 1.8 mg/dL (1.8-2.4); PHOSPHOROUS 2.8 mg/dL (2.5-4.9); POTASSIUM - SERUM 4.2 mmol/L (3.5-5.1); PROTEIN - SERUM 6.4 g/dL (6.4-8.2); TROPONIN-I 0.045 ng/mL (0.000-0.060)
[2017-11-11] VITALS (24 sets, daily range): BP systolic 97–156; BP diastolic 72–113
[2017-11-11 04:09] LABS: BASOPHILS 0 % (0-2); EOSINOPHILS 0 % (0-7); HEMATOCRIT 44.7 % (42.0-54.0); HEMOGLOBIN 14.1 g/dL (13.5-17.5); IMMATURE GRANULOCYTES 0.4 % (0-5); LYMPHOCYTES 7.4 % (15-50); MCH 32.1 pg (26.0-34.0); MCHC 31.5 g/dL (31.0-37.0); MCV 101.8 fL (80.0-100.0); MEAN PLATELET VOLUME 11.1 fL (7.4-10.4); MONOCYTES 4.7 % (2-11); NEUTROPHILS 87.5 % (40-80); PLATELET COUNT 140 10x3/uL (130-400); RBC 4.39 10x6/uL (4.20-6.10); RDW 14.2 % (11.5-14.5); WBC 7.3 10x3/uL (4.8-10.8)
[2017-11-11 04:27] LABS: ANION GAP 10.3 mmol/L (8-16); CREATININE - SERUM 1.4 mg/dL (0.6-1.3); POTASSIUM - SERUM 4.3 mmol/L (3.5-5.1)
[2017-11-12] VITALS (20 sets, daily range): BP systolic 118–154; BP diastolic 77–107
[2017-11-12 03:56] LABS: BASOPHILS 0.1 % (0-2); EOSINOPHILS 0 % (0-7); HEMOGLOBIN 14.3 g/dL (13.5-17.5); IMMATURE GRANULOCYTES 0.2 % (0-5); LYMPHOCYTES 5.1 % (15-50); MCH 32.4 pg (26.0-34.0); MCHC 31.8 g/dL (31.0-37.0); MCV 101.8 fL (80.0-100.0); MEAN PLATELET VOLUME 11.2 fL (7.4-10.4); MONOCYTES 3.9 % (2-11); NEUTROPHILS 90.7 % (40-80); PLATELET COUNT 158 10x3/uL (130-400); RBC 4.42 10x6/uL (4.20-6.10); RDW 14.1 % (11.5-14.5)
[2017-11-12 04:10] LABS: WBC 9.6 10x3/uL (4.8-10.8)
[2017-11-12 04:16] LABS: ANION GAP 7.5 mmol/L (8-16); CALCIUM 8.9 mg/dL (8.5-10.1); CARBON DIOXIDE 39.8 mmol/L (21.0-32.0); CHOL - HDL RATIO 9.8 ratio (2.3-4.9); CREATININE - SERUM 1.3 mg/dL (0.6-1.3); LDL-HDL RATIO 5.9 ratio (1.5-3.5); MAGNESIUM - SERUM 1.8 mg/dL (1.8-2.4); PHOSPHOROUS 2.9 mg/dL (2.5-4.9)
[2017-11-12 04:17] LABS: POTASSIUM - SERUM 5.3 mmol/L (3.5-5.1)
[2017-11-13] VITALS (18 sets, daily range): BP systolic 116–155; BP diastolic 54–105
[2017-11-13 03:52] LABS: BASOPHILS 0 % (0-2); EOSINOPHILS 0 % (0-7); HEMATOCRIT 45.9 % (42.0-54.0); HEMOGLOBIN 14.3 g/dL (13.5-17.5); IMMATURE GRANULOCYTES 0.4 % (0-5); LYMPHOCYTES 4.2 % (15-50); MCHC 31.2 g/dL (31.0-37.0); MCV 102.7 fL (80.0-100.0); MEAN PLATELET VOLUME 11.4 fL (7.4-10.4); MONOCYTES 3.3 % (2-11); NEUTROPHILS 92.1 % (40-80); PLATELET COUNT 159 10x3/uL (130-400); RBC 4.47 10x6/uL (4.20-6.10); RDW 14.3 % (11.5-14.5); WBC 11.1 10x3/uL (4.8-10.8)
[2017-11-13 04:06] LABS: CREATININE - SERUM 1.3 mg/dL (0.6-1.3); MAGNESIUM - SERUM 1.9 mg/dL (1.8-2.4); PHOSPHOROUS 3.2 mg/dL (2.5-4.9)
[2017-11-13 04:07] LABS: ANION GAP 6.2 mmol/L (8-16)
[2017-11-13 04:08] LABS: CARBON DIOXIDE 40.8 mmol/L (21.0-32.0)
[2017-11-14] VITALS: BP 143/93
[2017-11-14 04:00] VITALS: BP 140/89
[2017-11-14 05:20] LABS: BASOPHILS 0.1 % (0-2); EOSINOPHILS 0.1 % (0-7); HEMATOCRIT 45.1 % (42.0-54.0); IMMATURE GRANULOCYTES 0.5 % (0-5); LYMPHOCYTES 4.8 % (15-50); MEAN PLATELET VOLUME 11.3 fL (7.4-10.4); MONOCYTES 3.6 % (2-11); NEUTROPHILS 90.9 % (40-80); PLATELET COUNT 170 10x3/uL (130-400); RBC 4.38 10x6/uL (4.20-6.10); RDW 14.1 % (11.5-14.5); WBC 12.9 10x3/uL (4.8-10.8)
[2017-11-14 05:42] LABS: ALBUMIN 2.8 g/dL (3.4-5.0); ANION GAP 1.1 mmol/L (8-16); BILIRUBIN - TOTAL 1.1 mg/dL (0.2-1.3); CALCIUM 9.5 mg/dL (8.5-10.1); CREATININE - SERUM 1.4 mg/dL (0.6-1.3); POTASSIUM - SERUM 4.4 mmol/L (3.5-5.1)
[2017-11-14 06:29] LABS: CARBON DIOXIDE 44.3 mmol/L (21.0-32.0)
[2017-11-14 08:07] VITALS: BP 136/82
[2017-11-14 10:46] VITALS: BP 138/72
[2017-11-14 15:33] VITALS: BP 132/86
[2017-11-14 20:00] VITALS: BP 131/69
[2017-11-15] VITALS: BP 136/77
[2017-11-15 04:00] VITALS: BP 129/76
[2017-11-15 08:29] VITALS: BP 102/85
[2017-11-15 13:01] VITALS: BP 140/80
[2017-11-15 18:39] VITALS: BP 127/71
[2017-11-15 19:00] VITALS: BP 132/67
[2017-11-16 04:00] VITALS: BP 134/86
[2017-11-16 06:29] LABS: BASOPHILS 0 % (0-2); EOSINOPHILS 0 % (0-7); HEMATOCRIT 45.2 % (42.0-54.0); HEMOGLOBIN 14.1 g/dL (13.5-17.5); IMMATURE GRANULOCYTES 0.5 % (0-5); LYMPHOCYTES 4.4 % (15-50); MCH 31.8 pg (26.0-34.0); MCHC 31.2 g/dL (31.0-37.0); MCV 101.8 fL (80.0-100.0); MEAN PLATELET VOLUME 11.5 fL (7.4-10.4); MONOCYTES 2.7 % (2-11); NEUTROPHILS 92.4 % (40-80); PLATELET COUNT 165 10x3/uL (130-400); RBC 4.44 10x6/uL (4.20-6.10); WBC 15.1 10x3/uL (4.8-10.8)
[2017-11-16 06:46] LABS: MAGNESIUM - SERUM 1.7 mg/dL (1.8-2.4); PHOSPHOROUS 3.5 mg/dL (2.5-4.9)
[2017-11-16 11:52] VITALS: BP 128/69
[2017-11-16 15:40] VITALS: BP 135/72
[2017-11-16 20:00] VITALS: BP 126/70
[2017-11-17] VITALS: BP 106/69
[2017-11-17 05:50] VITALS: BP 126/79
[2017-11-17 06:56] LABS: ALBUMIN 2.8 g/dL (3.4-5.0); ANION GAP 7.2 mmol/L (8-16); BILIRUBIN - TOTAL 0.8 mg/dL (0.2-1.3); CARBON DIOXIDE 37.4 mmol/L (21.0-32.0); CREATININE - SERUM 1.2 mg/dL (0.6-1.3); POTASSIUM - SERUM 4.6 mmol/L (3.5-5.1); PROTEIN - SERUM 5.7 g/dL (6.4-8.2)
[2017-11-17 08:16] VITALS: BP 120/77
[2017-11-17] MEDS ORDERED: BROVANA15 MCG/2 M INH (10:26)
[2017-11-17] MEDS ORDERED: XOPENEX 0.0.63 MG/3 UPD (10:27)
[2017-11-17] MEDS ORDERED: ATROVENT 0.02%2.5 ML UPD (10:27)
[2017-11-17] MEDS ORDERED: COZAAR25 MG PO (10:29)
[2017-11-17] MEDS ORDERED: BETAPACE 120 M120 MG PO (10:30)
[2017-11-17] MEDS ORDERED: XARELTO15 MG PO (10:30)
[2017-11-17] MEDS ORDERED: SINGULAIR10 MG PO (10:32)
[2017-11-17] MEDS ORDERED: PULMICORT0.5 MG/21 UPD (10:32)
[2017-11-17] MEDS ORDERED: FLUTICASONE PRO16 GM NASAL (10:33)
[2017-11-17] MEDS ORDERED: FLORAJEN3 CAPS460 MG PO (10:33)
[2017-11-17] MEDS ORDERED: GLIMEPIRIDE1 MG PO (10:34)
== END 2017-11-17 12:21 | disposition home health service (06) | DRG 177 ==
LOC: D.ER 00:30 → D.ICU 01:30 → D.M2 01:30
PROVIDERS: Emergency Medicine; Family Medicine; Internal Medicine Cardiovascular Disease; Internal Medicine Nephrology; Internal Medicine Pulmonary Disease; Physician Assistant Medical
PROC: 5A09357 Assistance with Respiratory Ventilation, Less than 24 Consecutive Hours, Continuous Positive Airway Pressure (ICD-10-PCS; principal; 2017-11-06)
PROC: 0BH17EZ Insertion of Endotracheal Airway into Trachea, Via Natural or Artificial Opening (ICD-10-PCS; 2017-11-08)
PROC: 5A09557 Assistance with Respiratory Ventilation, Greater than 96 Consecutive Hours, Continuous Positive Airway Pressure (ICD-10-PCS; 2017-11-09)
DX: J15.6 Pneumonia due to other Gram-negative bacteria (principal); J96.22 Acute and chronic respiratory failure with hypercapnia; I50.33 Acute on chronic diastolic (congestive) heart failure; J96.21 Acute and chronic respiratory failure with hypoxia; I13.0 Hypertensive heart and chronic kidney disease with heart failure and stage 1 through stage 4 chronic kidney disease, or unspecified chronic kidney disease; N17.9 Acute kidney failure, unspecified; J44.1 Chronic obstructive pulmonary disease with (acute) exacerbation; I97.710 Intraoperative cardiac arrest during cardiac surgery; J44.0 Chronic obstructive pulmonary disease with (acute) lower respiratory infection; J15.212 Pneumonia due to Methicillin resistant Staphylococcus aureus; J13 Pneumonia due to Streptococcus pneumoniae; N18.9 Chronic kidney disease, unspecified; Z66 Do not resuscitate; I25.10 Atherosclerotic heart disease of native coronary artery without angina pectoris; N40.0 Benign prostatic hyperplasia without lower urinary tract symptoms; E78.5 Hyperlipidemia, unspecified; M19.90 Unspecified osteoarthritis, unspecified site; F17.200 Nicotine dependence, unspecified, uncomplicated; I48.91 Unspecified atrial fibrillation; Z95.5 Presence of coronary angioplasty implant and graft; E87.5 Hyperkalemia; G47.33 Obstructive sleep apnea (adult) (pediatric); D72.829 Elevated white blood cell count, unspecified; I27.20 Pulmonary hypertension, unspecified; I34.0 Nonrheumatic mitral (valve) insufficiency; K57.90 Diverticulosis of intestine, part unspecified, without perforation or abscess without bleeding; J30.9 Allergic rhinitis, unspecified; Z99.81 Dependence on supplemental oxygen; I08.1 Rheumatic disorders of both mitral and tricuspid valves

== ENCOUNTER → 2017-11-29 08:45 | Outpatient (CLI) | payer MEDICARE, OTHER ==
[2017-11-07 13:09] VITALS: BMI 31.6
[~2017-11-29 08:45] MED LIST changes: +ASCORBIC ACID500 MG PO; +BROVANA15 MCG/2 M INH; +CENTRUM SILVER1 TA1 PO; +COZAAR25 MG PO; +FLORAJEN3 CAPS460 MG PO; +FLUTICASONE PRO16 GM NASAL; +GLIMEPIRIDE1 MG PO; +PULMICORT0.5 MG/21 UPD; +XOPENEX 0.0.63 MG/3 UPD
[2017-11-29 09:06] LABS: BASOPHILS 0.1 % (0-2); EOSINOPHILS 1.5 % (0-7); HEMATOCRIT 41.3 % (42.0-54.0); HEMOGLOBIN 13.1 g/dL (13.5-17.5); IMMATURE GRANULOCYTES 0.1 % (0-5); LYMPHOCYTES 18.5 % (15-50); MCH 31.9 pg (26.0-34.0); MCHC 31.7 g/dL (31.0-37.0); MCV 100.5 fL (80.0-100.0); MEAN PLATELET VOLUME 10.4 fL (7.4-10.4); MONOCYTES 6.6 % (2-11); NEUTROPHILS 73.2 % (40-80); PLATELET COUNT 192 10x3/uL (130-400); RBC 4.11 10x6/uL (4.20-6.10); RDW 14.8 % (11.5-14.5); WBC 7.6 10x3/uL (4.8-10.8)
[2017-11-29 09:37] LABS: ALBUMIN 2.5 g/dL (3.4-5.0); ANION GAP 12.4 mmol/L (8-16); BILIRUBIN - TOTAL 0.56 mg/dL (0.2-1.3); CALCIUM 9.5 mg/dL (8.5-10.1); CARBON DIOXIDE 33.6 mmol/L (21.0-32.0); CREATININE - SERUM 2.1 mg/dL (0.6-1.3); MAGNESIUM - SERUM 1.8 mg/dL (1.8-2.4); PHOSPHOROUS 3.8 mg/dL (2.5-4.9); PROTEIN - SERUM 6.8 g/dL (6.4-8.2)
== END | disposition home or self-care (01) ==
LOC: D.LAB 08:00
PROVIDERS: Family Medicine
DX: R60.9 Edema, unspecified (principal); T14.8XXA Other injury of unspecified body region, initial encounter; X58.XXXA Exposure to other specified factors, initial encounter; Y93.9 Activity, unspecified; Y92.9 Unspecified place or not applicable; J44.9 Chronic obstructive pulmonary disease, unspecified